=== PATIENT | female | born 1985 | race Two or more races ===

== ENCOUNTER 2019-09-04 13:11 | Emergency (ER) | payer MEDICAID, OTHER ==
[~2019-09-04] VITALS: Ht 165.1 cm; Wt 73.5 kg
[2019-09-04 13:16] VITALS: BP 125/82
--- NOTE | 2019-09-04 13:34 | NUR ---
34 Y/O FEMALE PRESENTS TO ED WITH LEFT FINGER PAIN, 4TH DIGIT, X1 DAY. BLISTER NOTED ON LEFT HAND, 4TH DIGIT, SWELLING/ERYTHEMA NOTED AT SITE. SKIN IN TACT, NO BLEEDING NOTED. PT REPORTS SHE WAS WEARING A RING ON HER FINGER AND BEGAN FEELING ITCHY ON HER FINGER, WHEN SHE TOOK HER RING OFF SHE NOTICED A SMALL BLISTER ON HER FINGER. PT REPORTS SHE TRIED TO POP THE BLISTER, CLEAR FLUID CAME OUT AND IT FLATTENED OUT. THE BLISTER BECAME BIGGER AND MORE PAINFUL AND PAIN BEGAN TO RADIATE UP HER LEFT ARM. CMS+. ROM IN TACT IN BILAT UPPER EXT. RADIAL PULSES IN TACT. DENIES SOB/CHEST PAIN. RESP EVEN AND UNLABORED. NO PMH NKA
--- NOTE | 2019-09-04 14:44 | NUR ---
DR DEAN AND RICO CHINCHILLA AT BEDSIDE
[2019-09-04] MEDS ORDERED: CLINDAMYCIN 600 MG in DEXTROSE 5% 50 ML IV ONE (14:45)
[2019-09-04] MEDS ORDERED: NACL 0.9% 1,000 ML IV SCH (14:45)
[2019-09-04] MEDS ORDERED: KETOROLAC 30 MG/ML VIAL IVP ONE (14:45)
[2019-09-04] MEDS ORDERED: CLINDAMYCIN 600 MG/4 ML VIAL ONE (14:55)
[2019-09-04 15:28] LABS: BASOPHILS # (AUTO) 0.1 K/uL (0.00-0.22); BASOPHILS % (AUTO) 0.6 % (0.0-2.0); EOSINOPHILS # (AUTO) 0.1 K/uL (0-0.4); EOSINOPHILS % (AUTO) 0.7 % (0.0-4.0); HEMATOCRIT 36.5 % (36-48); HEMOGLOBIN 12.1 g/dL (12.0-16.0); LYMPHOCYTES # (AUTO) 1.8 K/uL (2.5-16.5); LYMPHOCYTES % (AUTO) 13.7 % (20.5-51.1); MEAN CORPUSCULAR HEMOGLOBIN 28 pg (27-31); MEAN CORPUSCULAR HGB CONC 33 g/dL (33-37); MEAN CORPUSCULAR VOLUME 82.9 fL (80-94); MONOCYTES # (AUTO) 0.8 K/uL (0.8-1.0); NEUTROPHILS # (AUTO) 10.3 K/uL (1.8-7.7); PLATELET COUNT (AUTO) 344 K/uL (140-450); RED CELL DISTRIBUTION WIDTH 12.9 % (11.6-13.7); WHITE BLOOD COUNT (AUTO) 13.1 K/uL (4.8-10.8)
[2019-09-04 15:47] LABS: ALBUMIN 3.5 g/dL (3.4-5.0); ANION GAP 13.1 (8-16); CARBON DIOXIDE 25.7 mmol/L (21-32); CREATININE 0.6 mg/dL (0.6-1.3); POTASSIUM 3.8 mmol/L (3.5-5.1); TOTAL BILIRUBIN 0.4 mg/dL (0.0-1.0)
[2019-09-04] MEDS ORDERED: BACITRACIN OINT 500 UNITS/GM PKT TP ONE ×2 (16:04→17:00)
--- NOTE | 2019-09-04 16:20 | NUR ---
PT STATES PAIN IS MORE OF A DISCOMFORT FEELING 2/10, NADR
--- NOTE | 2019-09-04 16:22 | NUR ---
BACITRACIN APPLIED TO SITE
[2019-09-04 16:30] VITALS: BP 123/74
--- NOTE | 2019-09-04 16:30 | NUR ---
Patient discharged with v/s stable. Written and verbal after care instructions given and explained REGARDING CELLULITIS. Patient alert, oriented and verbalized understanding of instructions. Ambulatory with steady gait. All questions addressed prior to discharge. ID band removed. Patient advised to follow up with PMD. Rx of IBUPROFEN AND CLINDAMYOCIN, BACITRACIN given. Patient educated on indication of medication including possible reaction and side effects. Opportunity to ask questions provided and answered.
== END 2019-09-04 16:30 | disposition home or self-care (01) ==
LOC: MED 13:11
DX: L02.512 Cutaneous abscess of left hand (principal); I89.1 Lymphangitis
CPT/HCPCS: 10060; 36415; 80053; 85025; 87040; 96365; 96375; 99284; J1885; J3490; J7030; 96374

== ENCOUNTER 2019-09-05 21:11 | Emergency (ER) | payer OTHER ==
[~2019-09-05] VITALS: Ht 170.2 cm; Wt 74.8 kg
[2019-09-05 21:15] VITALS: BP 125/90
--- NOTE | 2019-09-05 21:15 | NUR ---
to bed # 05 ambulatory
--- NOTE | 2019-09-05 21:32 | NUR ---
34 YO FEMALE CO HAND PAIN FROM BITE ON HER LEFT HAND SINCE YESTERDAY. PT WAS HERE IN ED YESTERDAY FOR TX OF A BITE TO HER LEFT HAND. SHE FEELS THAT THAT HAND IS RED AND SWOLLEN TODAY. PT HAS NO MED HX. PT IS LAYING IN BED IN A GOWN WITH ONE SIDE RAIL UP FOR SAFETY.
[2019-09-05 21:59] VITALS: BP 125/90
--- NOTE | 2019-09-05 21:59 | NUR ---
Patient discharged with v/s stable. Written and verbal after care instructions given and explained. Patient verbalized understanding. Ambulatory with steady gait. All questions addressed prior to discharge. Advised to follow up with PMD.
== END 2019-09-05 21:59 | disposition home or self-care (01) ==
LOC: MED 21:11
DX: L03.012 Cellulitis of left finger (principal)
CPT/HCPCS: 99281

== ENCOUNTER 2021-01-23 18:35 | Emergency (ER) | payer OTHER ==
[~2021-01-23] VITALS: Ht 170.2 cm; Wt 68.0 kg
[2021-01-23 19:05] VITALS: BP 136/87
--- NOTE | 2021-01-23 19:07 | NUR ---
TO LOBBY A/W BED AMBULATORY
[2021-01-23] MEDS ORDERED: BACTO TP (19:11)
[2021-01-23] MEDS ORDERED: CEPH-588 PO (19:11)
[2021-01-23 21:48] VITALS: BP 136/87
== END 2021-01-23 21:48 | disposition home or self-care (01) ==
LOC: MED 18:35
DX: L03.116 Cellulitis of left lower limb (principal); Z79.899 Other long term (current) drug therapy; Z98.890 Other specified postprocedural states
CPT/HCPCS: 90715; 99283

== ENCOUNTER 2022-02-12 22:23 | Emergency (ER) | payer OTHER ==
[~2022-02-12 22:23] MED LIST: BACTO TP; CEPH-588 PO
--- NOTE | 2022-02-13 02:27 | NUR ---
PATIENT LEFT WITHOUT BEING SEEN BY DR. MELISSA. NO FURTHER CARE PROVIDED FOR PATIENT.
[2022-02-13] MEDS ORDERED: FAMO-92 PO (21:49)
[2022-02-13] MEDS ORDERED: MAG-27 PO (21:49)
[2022-02-13] MEDS ORDERED: ONDA-188 PO (21:49)
== END 2022-02-13 02:27 | disposition left against medical advice (07) ==
LOC: MED 22:23
DX: R10.9 Unspecified abdominal pain (principal); Z53.21 Procedure and treatment not carried out due to patient leaving prior to being seen by health care provider

== ENCOUNTER 2022-02-13 14:32 | Emergency (ER) | payer OTHER ==
[~2022-02-13] VITALS: Ht 170.2 cm; Wt 69.9 kg
[2022-02-13 15:19] VITALS: BP 140/77
[2022-02-13] MEDS ORDERED: ONDANSETRON 4 MG ODT PO ONE (17:45)
[2022-02-13] MEDS ORDERED: ALUMINUM HYD/MAG/SIMETHICONE 30 ML UDC PO ONE (17:45)
[2022-02-13] MEDS ORDERED: FAMOTIDINE 20 MG TAB PO ONE (17:45)
[2022-02-13 19:03] LABS: BASOPHILS # (AUTO) 0.1 K/uL (0.00-0.22); BASOPHILS % (AUTO) 0.8 % (0.0-2.0); EOSINOPHILS # (AUTO) 0.2 K/uL (0-0.4); EOSINOPHILS % (AUTO) 2.6 % (0.0-4.0); HEMATOCRIT 34.5 % (36-48); LYMPHOCYTES # (AUTO) 2.7 K/uL (2.5-16.5); LYMPHOCYTES % (AUTO) 30.9 % (20.5-51.1); MEAN CORPUSCULAR HEMOGLOBIN 26 pg (27-31); MEAN CORPUSCULAR HGB CONC 32 g/dL (33-37); MEAN CORPUSCULAR VOLUME 80.7 fL (80-94); MONOCYTES # (AUTO) 0.8 K/uL (0.8-1.0); MONOCYTES % (AUTO) 9.4 % (1.7-9.3); NEUTROPHILS # (AUTO) 4.9 K/uL (1.8-7.7); NEUTROPHILS % (AUTO) 56.3 % (42.2-75.2); PLATELET COUNT (AUTO) 342 K/uL (140-450); RED BLOOD CELL COUNT(AUTO) 4.27 MIL/uL (4.20-5.40); RED CELL DISTRIBUTION WIDTH 16.3 % (11.6-13.7); WHITE BLOOD COUNT (AUTO) 8.7 K/uL (4.8-10.8)
[2022-02-13 19:24] LABS: ALBUMIN 3.6 g/dL (3.4-5.0); ANION GAP 14.2 (8-16); CARBON DIOXIDE 26.2 mmol/L (21-32); CREATININE 0.8 mg/dL (0.6-1.3); POTASSIUM 3.4 mmol/L (3.5-5.1); TOTAL BILIRUBIN 0.2 mg/dL (0.0-1.0)
[2022-02-13] MEDS ORDERED: ONDA-188 PO (21:49)
[2022-02-13] MEDS ORDERED: MAG-27 PO (21:49)
[2022-02-13] MEDS ORDERED: FAMO-92 PO (21:49)
[2022-02-13 22:11] VITALS: BP 138/79
--- NOTE | 2022-02-13 22:12 | NUR ---
Patient discharged with v/s stable by ermd. Written and verbal after care instructions given and explained to parent/guardian. Parent/Guardian verbalized understanding. Ambulatorysteady gait. All questions addressed prior to discharge. Advised to follow up with PMD. [id number] Addendum: 02/13/22 at 2213 by [email or web address] wrong note
--- NOTE | 2022-02-13 22:13 | NUR ---
Patient discharged with v/s stable by ermd. Written and verbal after care instructions given and explained. Patient alert, oriented and verbalized understanding of instructions. Ambulatory with steady gait. All questions addressed prior to discharge. ID band removed. Patient advised to follow up with PMD. Rx of mylanta po 355ml oral susp, pepcid 40mg po, zofran odt 4mg po given. Patient educated on indication of medication including possible reaction and side effects. Opportunity to ask questions provided and answered.
== END 2022-02-13 22:05 | disposition home or self-care (01) ==
LOC: MED 14:32
DX: K29.70 Gastritis, unspecified, without bleeding (principal)
CPT/HCPCS: 36415; 80053; 81002; 81025; 83690; 85025; 99284; Q0162

== ENCOUNTER 2022-06-19 17:30 | Emergency (ER) | payer OTHER ==
[~2022-06-19] VITALS: Ht 170.2 cm; Wt 78.5 kg
[~2022-06-19 17:30] MED LIST changes: +FAMO-92 PO; +MAG-27 PO; +ONDA-188 PO
[2022-06-19 17:57] VITALS: BP 126/83
--- NOTE | 2022-06-19 18:02 | NUR ---
FLU AND SAM SWABS COLLECTED
[2022-06-19] MEDS ORDERED: BENZ-300 PO (18:57)
[2022-06-19] MEDS ORDERED: AMOX1TAB8 PO (18:57)
[2022-06-19] MEDS ORDERED: IBUP-2213 PO (18:57)
[2022-06-19 19:10] VITALS: BP 126/83
--- NOTE | 2022-06-19 19:10 | NUR ---
Patient discharged with v/s stable. Written and verbal after care instructions given and explained. Patient alert, oriented and verbalized understanding of instructions. Ambulatory with steady gait. All questions addressed prior to discharge. ID band removed. Patient advised to follow up with PMD. Rx of Amox-clav, Lozenge and Ibuprofen given. Patient educated on indication of medication including possible reaction and side effects. Opportunity to ask questions provided and answered.
== END 2022-06-19 19:10 | disposition home or self-care (01) ==
LOC: MED 17:30
DX: J02.9 Acute pharyngitis, unspecified (principal); Z20.822 Contact with and (suspected) exposure to COVID-19; Z79.899 Other long term (current) drug therapy
CPT/HCPCS: 99283

== ENCOUNTER 2024-04-12 14:29 | Emergency (ER) | payer OTHER ==
[~2024-04-12] VITALS: Ht 170.2 cm; Wt 64.4 kg
[~2024-04-12 14:29] MED LIST changes: +AMOX1TAB8 PO; +BENZ-300 PO; +IBUP-2213 PO
[2024-04-12 14:39] VITALS: BP 125/86; PULSE 94; RESP 18; TEMP 98.8; O2SAT 100
[2024-04-12] MEDS: KETOROLAC 30 MG/ML VIAL IVP ONE (15:14)
[2024-04-12 15:25] LABS: BASOPHILS % (AUTO) 0.5 % (0.0-2.0); EOSINOPHILS # (AUTO) 0.1 K/uL (0-0.4); EOSINOPHILS % (AUTO) 0.7 % (0.0-4.0); HEMATOCRIT 34.8 % (36-48); HEMOGLOBIN 11.3 g/dL (12.0-16.0); LYMPHOCYTES % (AUTO) 20.7 % (20.5-51.1); MEAN CORPUSCULAR HEMOGLOBIN 27 pg (27-31); MEAN CORPUSCULAR HGB CONC 33 g/dL (33-37); MEAN CORPUSCULAR VOLUME 81.8 fL (80-94); MONOCYTES # (AUTO) 0.5 K/uL (0.8-1.0); MONOCYTES % (AUTO) 4.9 % (1.7-9.3); NEUTROPHILS # (AUTO) 7.2 K/uL (1.8-7.7); NEUTROPHILS % (AUTO) 73.2 % (42.2-75.2); PLATELET COUNT (AUTO) 342 K/uL (140-450); RED BLOOD CELL COUNT(AUTO) 4.25 MIL/uL (4.20-5.40); RED CELL DISTRIBUTION WIDTH 14.8 % (11.6-13.7); WHITE BLOOD COUNT (AUTO) 9.8 K/uL (4.8-10.8)
[2024-04-12 15:30] LABS: APPEARANCE,URINE HAZY (CLEAR); BILIRUBIN,URINE 1+ (NEGATIVE); BLOOD, URINE TRACE-I (NEGATIVE); COLOR,URINE YELLOW (YELLOW); LEUKOCYTE ESTERASE ,URINE 2+ (NEGATIVE); NITRITE, URINE NEGATIVE (NEGATIVE); PROTEIN,URINE 1+ (NEGATIVE); UGLUCOSE NEGATIVE (NEGATIVE)
[2024-04-12 15:36] LABS: ICTOTEST NEGATIVE (NEGATIVE)
[2024-04-12 15:37] LABS: BACTERIA,URINE 4+ /HPF (None Seen); MUCUS,URINE 3+ /LPF (None Seen); WBC,URINE >25 (MANY) /HPF (0-5); YEAST,URINE Rare /HPF (None Seen)
[2024-04-12 15:45] LABS: ANION GAP 10.9 (8-16); CALCIUM 8.6 mg/dL (8.5-10.1); CARBON DIOXIDE 27.2 mmol/L (21-32); CREATININE 0.8 mg/dL (0.6-1.3); POTASSIUM 3.1 mmol/L (3.5-5.1)
[2024-04-12 15:52] LABS: ALBUMIN 3.4 g/dL (3.4-5.0); BILIRUBIN,DIRECT 0.1 mg/dL (0.0-0.3); TOTAL BILIRUBIN 0.3 mg/dL (0.0-1.0); TOTAL PROTEIN, SERUM 7.6 g/dL (6.4-8.2)
[2024-04-12 16:39] VITALS: BP 130/91; PULSE 83; RESP 16; O2SAT 100
[2024-04-12] MEDS ORDERED: IBUP-2213 PO (17:17)
[2024-04-12] MEDS ORDERED: CIPR500T4 PO (17:17)
== END 2024-04-12 17:30 | disposition home or self-care (01) ==
LOC: MED 14:29
DX: N39.0 Urinary tract infection, site not specified (principal); Z98.890 Other specified postprocedural states; Z79.899 Other long term (current) drug therapy
CPT/HCPCS: 36415; 74176; 80048; 80076; 81001; 81025; 83690; 85025; 87086; 96374; 99285; J1885

== ENCOUNTER 2024-04-21 07:22 | Emergency (ER) | payer OTHER ==
[~2024-04-21] VITALS: Ht 170.2 cm; Wt 65.8 kg
[~2024-04-21 07:22] MED LIST changes: +CIPR500T4 PO
[2024-04-21 07:24] VITALS: BP 114/75; PULSE 96; RESP 16; TEMP 97.6; O2SAT 97
[2024-04-21 07:40] VITALS: O2SAT 97
[2024-04-21 07:59] LABS: APPEARANCE,URINE HAZY (CLEAR); BILIRUBIN,URINE NEGATIVE (NEGATIVE); COLOR,URINE YELLOW (YELLOW); LEUKOCYTE ESTERASE ,URINE 2+ (NEGATIVE); PROTEIN,URINE 1+ (NEGATIVE); UGLUCOSE NEGATIVE (NEGATIVE); UROBILINOGEN,URINE 0.2 EU/dL (0.2 - 1)
[2024-04-21 08:30] LABS: BASOPHILS % (AUTO) 0.3 % (0.0-2.0); EOSINOPHILS # (AUTO) 0.1 K/uL (0-0.4); EOSINOPHILS % (AUTO) 1.2 % (0.0-4.0); HEMATOCRIT 30.6 % (36-48); LYMPHOCYTES # (AUTO) 1.6 K/uL (2.5-16.5); LYMPHOCYTES % (AUTO) 13.9 % (20.5-51.1); MEAN CORPUSCULAR HEMOGLOBIN 27 pg (27-31); MEAN CORPUSCULAR HGB CONC 33 g/dL (33-37); MEAN CORPUSCULAR VOLUME 81.3 fL (80-94); MONOCYTES # (AUTO) 0.8 K/uL (0.8-1.0); MONOCYTES % (AUTO) 6.5 % (1.7-9.3); NEUTROPHILS # (AUTO) 9.3 K/uL (1.8-7.7); NEUTROPHILS % (AUTO) 78.1 % (42.2-75.2); PLATELET COUNT (AUTO) 353 K/uL (140-450); RED BLOOD CELL COUNT(AUTO) 3.77 MIL/uL (4.20-5.40); RED CELL DISTRIBUTION WIDTH 14.5 % (11.6-13.7); WHITE BLOOD COUNT (AUTO) 11.9 K/uL (4.8-10.8)
[2024-04-21 08:32] LABS: BACTERIA,URINE 1+ /HPF (None Seen); NITRITE, URINE POSITIVE (NEGATIVE); WBC,URINE 20-60 /HPF (0-5)
[2024-04-21 08:36] LABS: BLOOD, URINE 2+ (NEGATIVE); CALCIUM OXALATE CRYSTALS,UR 0-10 /HPF (None Seen)
[2024-04-21] MEDS: FAMOTIDINE 20 MG TAB PO ONE (08:50)
[2024-04-21] MEDS: ALUMINUM HYD/MAG/SIMETHICONE 30 ML UDC PO ONE (08:50)
[2024-04-21] MEDS: ACETAMINOPHEN EXTRA STRENGTH 500 MG TAB PO ONE (08:51)
[2024-04-21 08:53] LABS: ANION GAP 10.9 (8-16); CALCIUM 8.3 mg/dL (8.5-10.1); CARBON DIOXIDE 26.3 mmol/L (21-32); CREATININE 0.8 mg/dL (0.6-1.3); POTASSIUM 3.2 mmol/L (3.5-5.1)
[2024-04-21 08:56] LABS: ALBUMIN 2.7 g/dL (3.4-5.0); BILIRUBIN,DIRECT 0.1 mg/dL (0.0-0.3); TOTAL BILIRUBIN 0.2 mg/dL (0.0-1.0); TOTAL PROTEIN, SERUM 6.8 g/dL (6.4-8.2)
[2024-04-21 09:46] VITALS: O2SAT 98
[2024-04-21 11:50] VITALS: O2SAT 98
[2024-04-21 12:10] VITALS: TEMP 98.1; O2SAT 99
[2024-04-21] MEDS ORDERED: ACET500T99 PO (12:44)
[2024-04-21] MEDS ORDERED: MIRABULK PO (12:44)
[2024-04-21] MEDS ORDERED: CEPH500C16 PO (12:44)
[2024-04-21] MEDS ORDERED: [UNRECOGNIZED DRUG - CODE] PO (12:44)
[2024-04-21 13:03] VITALS: BP 117/77; PULSE 88; RESP 16
== END 2024-04-21 13:04 | disposition home or self-care (01) ==
LOC: MED 07:22
DX: K59.00 Constipation, unspecified (principal); N39.0 Urinary tract infection, site not specified; N83.202 Unspecified ovarian cyst, left side; Z79.899 Other long term (current) drug therapy
CPT/HCPCS: 36415; 74177; 80048; 80076; 81001; 81025; 83690; 85025; 87086; 99285; Q9967